=== PATIENT | female | born 1985 | race Caucasian/White ===

== ENCOUNTER 2024-09-20 05:54 | Day surgery (SDC) | payer BC ==
[2024-09-20 06:13] LABS: HCG URINE TEST NEGATIVE (NEGATIVE)
[2024-09-20] MEDS ORDERED: propofoL IV ONE ×3 (06:54→07:23)
[2024-09-20] MEDS ORDERED: Xylocaine-Mpf 2% 5 Ml Vial ONE (07:03)
[2024-09-20 08:19] VITALS: BP 125/79; PULSE 64; RESP 18; TEMP 98
[2024-09-20 08:22] VITALS: O2SAT 99
--- NOTE | 2024-09-21 12:21 | OP ---
SURGERY DATE/TIME: 09/20/2024 [id number] PREOPERATIVE DIAGNOSES: 1) Screening colonoscopy. 2) Family history of colon cancer. POSTOPERATIVE DIAGNOSIS: Sigmoid polyp x2. PROCEDURE: Colonoscopy. SURGEON: Philip Dunaway MD. ANESTHESIA: MAC by Max Gustafson CRNA. ESTIMATED BLOOD LOSS: Minimal. SPECIMENS: Two hot forceps polypectomies from the sigmoid colon. DESCRIPTION OF PROCEDURE AND FINDINGS: After informed written consent was obtained, the patient was taken to the endoscopy suite. She was placed in the left lateral decubitus position and anesthesia was titrated to the desired level of consciousness. Digital rectal exam showed normal sphincter tone and no internal lesions. The scope was inserted into the rectum and sequentially the entire colonic mucosa was traversed. The level of the cecum was reached and verified with direct visualization of the ileocecal valve. Upon withdrawal, careful mucosal inspection revealed 2 very small sessile polyps in the distal sigmoid colon. They were grasped with forceps, cauterized, and removed in their entirety and were hemostatic following removal. They were sent in the same specimen container due to their close proximity. Prior to withdrawal, retroflexion showed no internal lesions. The scope was removed, and patient was transferred to the recovery room in good condition. She will be seen in followup in 1 week with pathology results.
== END 2024-09-20 08:25 | disposition home or self-care (01) ==
LOC: SDC 05:54
PROVIDERS: ATTEND Family Medicine
DX: Z12.11 Encounter for screening for malignant neoplasm of colon (principal); Z80.0 Family history of malignant neoplasm of digestive organs; K63.5 Polyp of colon; E11.9 Type 2 diabetes mellitus without complications
CPT/HCPCS: 81025; 82947; J2704